=== PATIENT | female | born 1980 | race Caucasian/White ===

== ENCOUNTER 2025-07-11 19:33 | Emergency (ER) | payer BC, SELFPAY ==
[2025-07-11 19:37] VITALS: BP 157/75
[2025-07-11 20:29] VITALS: BP 135/81
[2025-07-11 20:31] VITALS: BMI 24.5
--- NOTE | 2025-07-11 20:57 | ED.SKININJ ---
HPI-Injury
General
Chief Complaint: Skin Surface Trauma
Source: patient
Exam Limitations: none
Time Seen by Provider: 07/11/25 20:12
Nursing documentation reviewed up to this point in time: agreed with
History of Present Illness-Injury
Is this injury a work related problem?: No
Is pt an associate of [facility]?: No
Initial Injury comments:
Patient to the emergency department for evaluation of laceration to her forehead. She states that she hit her head on a tailgate of her car. No loss of consciousness. She has a 1.5m horizontal laceration to the superior aspect of her mid
forehead. incident occurred just prior to arrival. Brought self emergency department for evaluation.
Past History
Past History
ED Past Medical History: None
Review of Systems
Review of Systems
Allergies reviewed?: Yes
All Other Systems: ROS reviewed and negative except as documented in HPI and ROS
Constitutional: Reports no symptoms
Musculoskeletal: Reports no symptoms
Skin: Reports other (Laceration to the superior aspect of the mid forehead )
Neurological: Reports no symptoms
Psychiatric: Reports no symptoms
Skin Exam
Laceration
Left Middle Forehead:
Length in cm: 1.5
Orientation: horizontal
Type of Laceration: simple
Any active bleeding?: no active bleeding
Distal skin color and temperature: normal-warm & good color
Normal distal neurovascular exam: Yes
Range of motion: full
Phy Exam
General Physical Exam
General Presentation: well appearing and no apparent distress
General age: appears stated age
General Skin: warm and dry
General Habitus: normal
Neurological Exam
Neurological Exam: alert, oriented x3, CN II-XII intact, no motor deficits, no sensory deficits and speech normal
Harjeet Coma Scale
Eye Opening: Spontaneous
Verbal Response: Oriented
Motor Response: Obeys Commands
GCS Total Score: 15
Musculoskeletal Exam
Musculoskeletal Exam: full ROM and neuro vasc intact
Skin Exam
Skin Exam: normal color, warm/dry and no rash
Psychiatric Exam
Psychiatric Exam: normal mood/affect
Course
Orders/Labs/Results
Orders:
Orders
07/11/25 20:54
Tetanus/Diphth/Acelpertussis [Adacel] 0.5 ml IM .ONCE ONE
Vital Signs
Initial and Last Documented VS:
Initial Vital Signs
Temp Pulse Resp BP Pulse Ox
97.8 F 93 16 157/75 98
07/11/25 19:37 07/11/25 19:37 07/11/25 19:37 07/11/25 19:37 07/11/25 19:37
Last Documented Vital Signs
Temp Pulse Resp BP Pulse Ox
98.0 F 90 20 135/81 100
07/11/25 20:29 07/11/25 20:29 07/11/25 20:29 07/11/25 20:29 07/11/25 20:29
*Pulse Oximetry
SaO2: 100
Oxygen Mode of Delivery: Room air
Patient hypoxic: no
*Critical Care Note
Total Time (30-74mins, 75-104mins- exclusive of procedures): Not Applicable
Update Note
Update Note:
Patient to ED for evaluation of laceration to superior aspect of the middle forehead. Wound was cleansed with normal saline dried and closed with Dermabond and Steri-Strips. She will be discharged home and was instructed to follow-up with her
family doctor. She was given the number for plastic surgery at her request for follow-up.
ED Attending Note
-
Portions of this chart may have been created with voice recognition software.� Occasional wrong word or��sound alike� substitutions may have occurred due to the inherent limitations of voice recognition software.
Discharge Plan
Departure
Patient Disposition: Home (Routine Discharge)
Date of Disposition: 07/11/25
Time of Disposition: 20:54
Patient with high blood pressure during this ER visit?: No
Condition: Good
Covid-19: Not Applicable
Discharge Problem:
Forehead laceration
Instructions: Laceration Repair With Glue (DC)
Prescriptions:
No Action
prenat.vits,walter,[id number]-[id number] [ Vitamin] 1 TAB tablet
1 tab PO
Referrals:
Priscilla Aguilar MD [Family Provider, Family Practice]
Ed Hernandez MD [Active, Plastic Surgery] - As needed
Interventions
Interventions:
*Risk Screen - Suicide Last Done: 07/11/25 19:37
*General Assessment Last Done: 07/11/25 19:37
*Neglect/Abuse Screening Last Done: 07/11/25 20:29
*ED- Fall Risk Assessment Last Done: 07/11/25 20:29
*ED COVID-19 Vaccine History Last Done: 07/11/25 20:29
*ED Influenza Vaccine History Last Done: 07/11/25 20:29
ED-Skin Assessment Last Done: 07/11/25 20:34
Discharge Date and Time
Print Language: MAORI
[2025-07-11] MEDS: ADACEL 0.5 ML IM (21:07)
== END 2025-07-11 21:15 | disposition home or self-care (01) ==
LOC: EMR 19:33
PROVIDERS: EMERGENCY PHYSICIAN Emergency Medicine; FAMILY PHYSICIAN Student in an Organized Health Care Education/Training Program
DX: S01.81XA Laceration without foreign body of other part of head, initial encounter (principal); W22.8XXA Striking against or struck by other objects, initial encounter; Z23 Encounter for immunization
CPT/HCPCS: 99282; 12011; 90471; 90715